=== PATIENT | male | born 1955 | race Caucasian/White ===

== ENCOUNTER 2017-06-11 18:07 | Inpatient (IN) | payer MEDICAID, OTHER ==
[~2017-06-11] VITALS: Ht 200.7 cm; Wt 106.6 kg
[2017-06-11 20:06] LABS: BASOPHILS % 0.9 % (0.0-2.0); EOSINOPHILS % 1.7 % (0.0-5.0); HEMATOCRIT. 47.1 % (42.0-52.0); HEMOGLOBIN. 16.3 g/dL (14.0-18.0); LYMPHOCYTES % 22.6 % (20.0-50.0); MEAN CORPUSCULAR HEMOGLOBIN 31.5 pg (28.0-32.0); MEAN CORPUSCULAR VOLUME 90.8 fL (80.0-94.0); MEAN PLATELET VOLUME 9.1 fl (7.4-10.4); MONOCYTES % 7.6 % (2.0-8.0); NEUTROPHILS % 67.2 % (40.0-76.0); PLATELET 155 x1000/uL (130-400); RED BLOOD CELL COUNT 5.19 mill/uL (4.7-6.1); RED CELL DISTRIBUTION WIDTH 13.8 % (11.6-14.6)
[2017-06-11 20:14] LABS: D-DIMER 1.23 mg/L FEU (<0.50); INR 1.1; PROTHROMBIN TIME 11.2 sec (9.4-11.6)
[2017-06-11 20:19] LABS: CARBON DIOXIDE 23 mEq/L (21-32); CHLORIDE 111 mEq/L (98-107); ETHANOL BLOOD < 10 mg/dL
[2017-06-11 20:20] LABS: CREATINE KINASE 338 IU/L (39-308)
[2017-06-11 20:23] LABS: TROPONIN I 0.07 ng/mL (0.00-0.04)
[2017-06-11 20:26] LABS: AMMONIA 29 uMol/L (<32)
[2017-06-12] MEDS ORDERED: SODIUM CHLORIDE 0.9% 1,000 ML IV ONE (00:15)
[2017-06-12 05:40] VITALS: BP 155/92
[2017-06-12 06:21] LABS: CLARITY URINE CLEAR (CLEAR); COLOR URINE DARK YELLOW (YELLOW); GLUCOSE URINE NEGATIVE (NEGATIVE); KETONES URINE 1+ (NEGATIVE); LEUKOCYTE ESTERASE URINE NEGATIVE (NEGATIVE); NITRITE URINE NEGATIVE (NEGATIVE); OCCULT BLOOD URINE NEGATIVE (NEGATIVE); PROTEIN URINE TRACE (NEGATIVE); SPECIFIC GRAVITY URINE 1.034 (1.005-1.030)
[2017-06-12 06:48] LABS: *AMPHETAMINES SCREEN URINE NEGATIVE (NEGATIVE); *BARBITURATES SCREEN URINE NEGATIVE (NEGATIVE); *COCAINE SCREEN URINE NEGATIVE (NEGATIVE); CANNABINOID URINE SCREEN NEGATIVE (NEGATIVE); METHADONE URINE SCREEN NEGATIVE (NEGATIVE); OPIATES URINE SCREEN NEGATIVE (NEGATIVE); PHENCYCLIDINE URINE SCREEN NEGATIVE (NEGATIVE)
[2017-06-12 06:59] LABS: *BENZODIAZEPINES SCREEN URINE NEGATIVE (NEGATIVE)
[2017-06-12] MEDS ORDERED: HYDROCODONE/ACETAMINOPHEN 5/325MG TABLET PO PRN (07:30)
[2017-06-12] MEDS ORDERED: ONDANSETRON HCL 4MG/2ML VIAL IV PRN (07:30)
[2017-06-12 08:00] VITALS: BP 148/98
[2017-06-12 09:22] LABS: BASOPHILS % 0.2 % (0.0-2.0); HEMATOCRIT. 47.1 % (42.0-52.0); LYMPHOCYTES % 30.6 % (20.0-50.0); MEAN CORPUSCULAR HEMOGLOBIN 31.3 pg (28.0-32.0); MEAN PLATELET VOLUME 9.6 fl (7.4-10.4); MONOCYTES % 7.6 % (2.0-8.0); NEUTROPHILS % 57.6 % (40.0-76.0); PLATELET 153 x1000/uL (130-400); RED BLOOD CELL COUNT 5.11 mill/uL (4.7-6.1); RED CELL DISTRIBUTION WIDTH 13.9 % (11.6-14.6)
[2017-06-12] MEDS: ASPIRIN 81MG TABLET PO SCH (09:23)
[2017-06-12] MEDS: AMLODIPINE 5MG TABLET PO SCH ×2 (09:23→20:56)
[2017-06-12 09:44] VITALS: BP 148/98
[2017-06-12 12:00] VITALS: BP 143/95
[2017-06-12 16:00] VITALS: BP 132/93
[2017-06-12 20:04] VITALS: BP 124/87
[2017-06-13] VITALS (8 sets, daily range): BP systolic 120–152; BP diastolic 78–103
[2017-06-13] MEDS: ASPIRIN 81MG TABLET PO SCH (10:11)
[2017-06-13] MEDS: AMLODIPINE 5MG TABLET PO SCH (10:12)
== END 2017-06-13 16:30 | disposition home or self-care (01) | DRG 48 ==
LOC: ER 18:21 → 8WST 06-12 01:05 → EDBEDREQ 06-12 02:01 → ENRESERV 06-12 02:12
PROVIDERS: ADMIT Hospitalist; ATTEND Hospitalist
DX: G90.8 Other disorders of autonomic nervous system (principal); I50.33 Acute on chronic diastolic (congestive) heart failure; N17.9 Acute kidney failure, unspecified; I11.0 Hypertensive heart disease with heart failure; R53.1 Weakness; F17.200 Nicotine dependence, unspecified, uncomplicated; W18.39XA Other fall on same level, initial encounter; Y93.89 Activity, other specified; Y92.89 Other specified places as the place of occurrence of the external cause; Y99.8 Other external cause status
CPT/HCPCS: 36415; 70551; 71010; 80048; 80053; 80305; 81001; 82140; 82550; 83605; 83880; 84443; 84484; 85025; 85379; 85610; 93005; 93306; 93880; 93970; 97162; 99285; G0482; J7030